=== PATIENT | female | born 1955 | race American Indian/Alaskan Native ===

== ENCOUNTER 2016-08-10 15:31 | Inpatient (IN) | payer MEDICAID ==
[2016-08-10 16:40] LABS: Basophils % (Auto) 0.8 % (0.0-1.8); Hematocrit 37.2 % (30.3-42.9); Hemoglobin 12.6 gm/dl (10.1-14.3); Mean Corpuscular HGB Conc 34 % (30-34); Mean Corpuscular Hemoglobin 26 pg (28-32); Mean Corpuscular Volume 77 fl (79-97); Platelet Count 123 K/mm3 (140-440); Red Blood Count 4.83 M/mm3 (3.65-5.03); Red Cell Distribution Width 14.9 % (13.2-15.2); White Blood Count 8.2 K/mm3 (4.5-11.0)
[2016-08-10 16:54] LABS: Anion Gap 19 mmol/L; BUN/Creatinine Ratio 21.66; Blood Urea Nitrogen 26 mg/dL (7-17); Calcium 8.1 mg/dL (8.4-10.2); Carbon Dioxide 25 mmol/L (22-30); Chloride 91.4 mmol/L (98-107); Glucose 108 mg/dL (65-100); Potassium 3.4 mmol/L (3.6-5.0); Sodium 132 mmol/L (137-145)
--- NOTE | 2016-08-10 17:00 | XRay Report ---
CHEST 2 VIEWS INDICATION: Productive cough. COMPARISON: 06/29/2011. FINDINGS: PA and lateral chest radiographs demonstrate normal cardiomediastinal silhouette. Clear lungs with somewhat prominent markings centrally, right more than left. Intact bones. EKG leads. CONCLUSION: No acute disease in the chest. Thank you for the opportunity to participate in this patient's care.
--- NOTE | 2016-08-10 17:07 | Emergency Department Report ---
HPI - General Chief Complaint: Weakness Time Seen by Provider: 08/10/16 16:45 - HPI HPI: Room 1 The patient is a 61-year-old female presenting with a chief complaint of dizziness. The patient states she came to the emergency department because she has been "feeling bad" for the past 3 days. The patient states she has had dizziness mostly with standing, felt hot, had a dry mouth and a cough occasionally productive of green sputum. The patient states she's had a decreased appetite since her symptoms began. The patient developed diarrhea yesterday morning states she's had approximate 4-5 episodes since. Patient denies chest pain, shortness breath or nausea/vomiting. Patient denies bright red blood per rectum was states she noticed a little bit of black stool. Patient denies any history of fever or loss of consciousness Location: [see above] Duration: [see above] Quality: Dizziness Severity: Moderate Modifying factors: [see above] Context: [see above] Mode of transportation: [not driving] ED Past Medical Hx - Past Medical History Hx Hypertension: Yes Hx CVA: Yes (L sided deficits) - Surgical History Additional Surgical History: tubal ligation - Family History Family history: no significant - Social History Smoking Status: Current Every Day Smoker (one pack per day) Substance Use Type: None ED Review of Systems ROS: Stated complaint: WEAKNESS Other details as noted in HPI Comment: All other systems reviewed and negative Constitutional: denies: fever Eyes: denies: eye pain, eye discharge, vision change ENT: denies: ear pain, throat pain Respiratory: cough. denies: shortness of breath Cardiovascular: denies: chest pain Endocrine: no symptoms reported Gastrointestinal: diarrhea. denies: abdominal pain, nausea, vomiting Genitourinary: denies: urgency, dysuria, discharge Musculoskeletal: denies: back pain, joint swelling, arthralgia Skin: denies: rash, lesions Neurological: denies: headache, weakness, paresthesias Psychiatric: denies: anxiety, depression Hematological/Lymphatic: denies: easy bleeding, easy bruising Physical Exam - Physical Exam Vital Signs: Vital Signs 08/10/16 08/10/16 15:52 16:05 Temperature 99.3 F Pulse Rate 93 H Respiratory 18 18 Rate Blood Pressure 109/66 O2 Sat by Pulse 99 99 Oximetry Physical Exam: GENERAL: The patient is well-developed well-nourished female lying on stretcher not appearing to be in acute distress. [] HEENT: Normocephalic. Atraumatic. Extraocular motions are intact. Patient has moist mucous membranes. NECK: Supple. No meningitic signs are noted. Trachea midline CHEST/LUNGS: Clear to auscultation. There is no respiratory distress noted. HEART/CARDIOVASCULAR: Regular. There is no tachycardia. There is no gallop rub or murmur. ABDOMEN: Abdomen is soft, nontender. Patient has normal bowel sounds. There is no abdominal distention. SKIN: There is no rash. There is no edema. There is no diaphoresis. NEURO: The patient is awake, alert, and oriented. The patient is cooperative. Cranial nerves II through XII grossly intact. The patient has normal speech MUSCULOSKELETAL: There is no evidence of acute injury. RECTAL: Guaiac positive brown stool. Hemorrhoids present ED Course Vital Signs 08/10/16 08/10/16 15:52 16:05 Temperature 99.3 F Pulse Rate 93 H Respiratory 18 18 Rate Blood Pressure 109/66 O2 Sat by Pulse 99 99 Oximetry ED Medical Decision Making - Lab Data Result diagrams: 08/10/16 16:22 08/10/16 16:22 Laboratory Tests 08/10/16 08/10/16 08/10/16 16:22 16:22 18:27 WBC 8.2 RBC 4.83 Hgb 12.6 Hct 37.2 MCV 77 L MCH 26 L MCHC 34 RDW 14.9 Plt Count 123 L Lymph % (Auto) 15.3 [place] % (Auto) 13.0 H Eos % (Auto) 0.0 Baso % (Auto) 0.8 Lymph # 1.3 [place] # 1.1 H Eos # 0.0 Baso # 0.1 Seg Neutrophils % 70.9 H Seg Neutrophils # 5.8 Sodium 132 L Potassium 3.4 L Chloride 91.4 L Carbon Dioxide 25 Anion Gap 19 BUN 26 H Creatinine 1.2 Estimated GFR 56 BUN/Creatinine Ratio 21.66 Glucose 108 H Calcium 8.1 L Troponin T < 0.010 Urine Color Yellow Urine Turbidity Slightly-cloudy Urine pH 6.0 Ur Specific [place] 1.014 Urine Protein <15 mg/dl Urine Glucose (UA) Neg Urine Ketones Neg Urine Blood Sm Urine Nitrite Neg Urine Bilirubin Neg Urine Urobilinogen < 2.0 Ur Leukocyte Esterase Tr Urine WBC (Auto) 2.0 Urine RBC (Auto) 4.0 U Epithel Cells (Auto) 4.0 - EKG Data -: EKG Interpreted by Me EKG shows normal: sinus rhythm Rate: normal - EKG Data When compared to previous EKG there are: previous EKG unavailable Interpretation: nonspecific ST-T wave emily (biphasic T-wave in lead 3. T-wave inversion in leads V2, V3, V4 with no old EKGs available for comparison) - Radiology Data Radiology results: report reviewed (CT head), image reviewed (CT head, chest x- ray) interpreted by me: Chest x-ray-no focal infiltrates, no pneumothorax CT head (read by radiologist)-remote right MCA distribution infarct. No acute intracranial findings - Differential Diagnosis diarrhea, dehydration Critical care attestation.: If time is entered above; I have spent that time in minutes in the direct care of this critically ill patient, excluding procedure time. ED Disposition Clinical Impression: Diarrhea, Rectal bleeding, Dehydration, Orthostatic hypotension Disposition: OP ADMITTED IP TO THIS HOSP Is pt being admited?: Yes Does the pt Need Aspirin: No Condition: Fair Referrals: RASHID MELISSA MD [Primary Care Provider] - 3-5 Days Time of Disposition: 18:57 (hospitalist paged)
--- NOTE | 2016-08-10 17:33 | Cat Scan Report ---
FINAL REPORT EXAM: CT HEAD/BRAIN WO CON HISTORY: dizziness TECHNIQUE: CT of the head without contrast PRIORS: None. FINDINGS: There is encephalomalacia right temporal and frontal lobes consistent with a large remote right MCA distribution infarct. There is ex vacuo dilatation of the right lateral ventricle No acute intra or extra-axial hemorrhage identified. No acute parenchymal abnormalities are seen. No evidence for midline shift or mass effect. Bony calvarium is intact. Visualized portions of the mastoids and paranasal sinuses are unremarkable. IMPRESSION: Remote right MCA distribution infarct No acute intracranial findings.
[2016-08-10] MEDS ORDERED: NACL 0.9% 1000 ML 1,000 ML IV ONE (18:34)
[2016-08-10 18:49] LABS: Bilirubin,Urine NEG (Negative); Blood,Urine SM (Negative); Ketones,Urine NEG (Negative); Leukocyte Esterase,Urine TR (Negative); Nitrite,Urine NEG (Negative); Protein,Urine <15 mg/dL mg/dL (Negative); Urobilinogen,Urine < 2.0 mg/dL (<2.0)
--- NOTE | 2016-08-10 19:07 | Admit Criteria Form ---
Admission Criteria Documentation: DEHYDRATION Clinical Indications for Admission to Inpatient Care (Place 'X' for any and all applicable criteria): Admission is indicated for ANY ONE of the following (1)(2)(3)(4)(5): [X ]I. Inpatient admission required rather than observation care (see Dehydration: Observation Care guideline as appropriate) because of ANY ONE of the following: [ ]a) Vomiting that is severe or persistent [ ]b) Severe electrolyte abnormalities requiring inpatient care [ X]c) Hemodynamic instability [ ]d) IV fluid to replace significant ongoing losses (greater than 3 L/m2 per day (10) (11) [ ]e) Parenteral nutrition regimen that must be implemented on inpatient basis [ ]f) Other condition,treatment or monitoring requiring inpatient admission [ ]II. Serious cause for dehydration requiring acute hospitalization (eg, bowel obstruction, increased intracranial pressure, infectious cause) Extended stay beyond goal length of stay may be needed for(1)(3 )(4)(17): [ ]a) Chronic severe dehydration [ ]b) Persistent vital sign changes, severe electrolyte imbalance, or diagnosed cause of dehydration that requires continued hospitalization (eg, bowel obstruction, increased intracranial pressure) [ ]c) Older patients (65 years or older) [ ]d) Severe comorbid illness (eg, renal failure, heart failure, poorly controlled diabetes) The original [employer] content created by [employer] has been revised. The portions of the content which have been revised are identified through the use of italic text or in bold, and [facility] has neither reviewed nor approved the modified material. All other unmodified content is copyright [facility]. Please see references footnoted in the original [employer] [facility] edition 2016 Admission Criteria Met: Yes
[2016-08-10] MEDS ORDERED: DULCOLAX PR PRN (19:53)
[2016-08-10] MEDS ORDERED: ZOFRAN IV PRN (19:53)
[2016-08-10] MEDS ORDERED: MILK OF MAGNESIA PO PRN (19:53)
[2016-08-10] MEDS ORDERED: NACL 0.9% 1000 ML 1,000 ML with KCL 20 MEQ IV SCH (20:00)
--- NOTE | 2016-08-10 20:08 | History and Physical Report ---
History of Present Illness Chief complaint: Dizziness upon standing History of present illness: 61F w pmh of htn and cva with residual Left sided weakness who presents with 3 days of weakness, fatigue, and 1 day of diarrhea, 5-6 episodes of watery diarrhea but then began having dizzyness upon standing over the last day, she denies CP, she did not pass out, she came to ER for futher evaluation as her symptosm did not get better Past History Past Medical History: hypertension, stroke Past Surgical History: Other (tubal ligation) Social history: smoking (1 ppd) Family history: no significant family history Medications and Allergies Allergies Allergy/AdvReac Type Severity Reaction Status Date / Time No Known Allergies Allergy Unverified 08/10/16 16:01 Active Meds: Active Medications Acetaminophen (Tylenol) 650 mg PO Q4H PRN PRN Reason: Pain MILD(1-3)/Fever >100.5/BESS Bisacodyl (Dulcolax) 10 mg [place] QDAY PRN PRN Reason: Constipation unrelieved by MOM Enoxaparin Sodium (Lovenox) 40 mg SUB-Q QDAY TRACY Potassium Chloride 20 meq/ (Sodium Chloride) 1,010 mls @ 100 mls/hr IV DIRECT TRACY Magnesium Hydroxide (Milk Of Magnesia) 30 ml PO Q4H PRN PRN Reason: Constipation Nicotine (Habitrol) 14 mg TD QDAY TRACY Ondansetron HCl (Zofran) 4 mg IV Q8H PRN PRN Reason: N/V unrelieved by Reglan Review of Systems All systems: negative (as stated in HPI) Constitutional: weakness Exam - Constitutional Vitals: Temp Pulse Resp BP Pulse Ox 101.2 F H 98 H 18 130/74 100 08/10/16 19:27 08/10/16 19:27 08/10/16 19:27 08/10/16 19:27 08/10/16 19:27 General appearance: Present: no acute distress, well-nourished - EENT Eyes: Present: PERRL ENT: hearing intact, clear oral mucosa - Neck Neck: Present: supple, normal ROM - Respiratory Respiratory effort: normal Respiratory: bilateral: CTA - Cardiovascular Heart Sounds: Present: S1 & S2. Absent: rub, click - Extremities Extremities: pulses symmetrical, No edema Peripheral Pulses: within normal limits - Abdominal General gastrointestinal: Present: soft, non-tender, non-distended, normal bowel sounds Female genitourinary: Present: normal - Integumentary Integumentary: Present: clear, warm, dry - Musculoskeletal Musculoskeletal: gait normal, strength equal bilaterally - Psychiatric Psychiatric: appropriate mood/affect, intact judgment & insight - Neurologic Neurologic: CNII-XII intact, moves all extremities, other (Left hemiparesis) Results - Labs CBC & Chem 7: 08/10/16 16:22 08/10/16 16:22 Labs: Laboratory Last Values WBC 8.2 K/mm3 (4.5-11.0) 08/10/16 16: RBC 4.83 M/mm3 (3.65-5.03) 08/10/16 16: Hgb 12.6 gm/dl (10.1-14.3) 08/10/16 16: Hct 37.2 % (30.3-42.9) 08/10/16 16: MCV 77 fl (79-97) L 08/10/16 16: MCH 26 pg (28-32) L 08/10/16 16:22 MCHC 34 % (30-34) 08/10/16 16:22 RDW 14.9 % (13.2-15.2) 08/10/16 16: Plt Count 123 K/mm3 (140-440) L 08/10/16 16:22 Lymph % (Auto) 15.3 % (13.4-35.0) 08/10/16 16:22 [place] % (Auto) 13.0 % (0.0-7.3) H 08/10/16 16:22 Eos % (Auto) 0.0 % (0.0-4.3) 08/10/16 16:22 Baso % (Auto) 0.8 % (0.0-1.8) 08/10/16 16: Lymph # 1.3 K/mm3 (1.2-5.4) 08/10/16 16:22 [place] # 1.1 K/mm3 (0.0-0.8) H 08/10/16 16:22 Eos # 0.0 K/mm3 (0.0-0.4) 08/10/16 16:22 Baso # 0.1 K/mm3 (0.0-0.1) 08/10/16 16:22 Seg Neutrophils % 70.9 % (40.0-70.0) H 08/10/16 16:22 Seg Neutrophils # 5.8 K/mm3 (1.8-7.7) 08/10/16 16:22 Sodium 132 mmol/L (137-145) L 08/10/16 16:22 Potassium 3.4 mmol/L (3.6-5.0) L 08/10/16 16:22 Chloride 91.4 mmol/L (98-107) L 08/10/16 16:22 Carbon Dioxide 25 mmol/L (22-30) 08/10/16 16:22 Anion Gap 19 mmol/L 08/10/16 16:22 BUN 26 mg/dL (7-17) H 08/10/16 16:22 Creatinine 1.2 mg/dL (0.7-1.2) 08/10/16 16:22 Estimated GFR 56 ml/min 08/10/16 16:22 BUN/Creatinine Ratio 21.66 % 08/10/16 16:22 Glucose 108 mg/dL (65-100) H 08/10/16 16:22 Calcium 8.1 mg/dL (8.4-10.2) L 08/10/16 16:22 Troponin T < 0.010 ng/mL (0.00-0.029) 08/10/16 16:22 Urine Color Yellow (Yellow) 08/10/16 18:27 Urine Turbidity Slightly-cloudy (Clear) 08/10/16 18:27 Urine pH 6.0 (5.0-7.0) 08/10/16 18:27 Ur Specific [place] 1.014 (1.003-1.030) 08/10/16 18:27 Urine Protein <15 mg/dl mg/dL (Negative) 08/10/16 18:27 Urine Glucose (UA) Neg mg/dL (Negative) 08/10/16 18:27 Urine Ketones Neg mg/dL (Negative) 08/10/16 18:27 Urine Blood Sm (Negative) 08/10/16 18:27 Urine Nitrite Neg (Negative) 08/10/16 18:27 Urine Bilirubin Neg (Negative) 08/10/16 18:27 Urine Urobilinogen < 2.0 mg/dL (<2.0) 08/10/16 18:27 Ur Leukocyte Esterase Tr (Negative) 08/10/16 18:27 Urine WBC (Auto) 2.0 /HPF (0.0-6.0) 08/10/16 18:27 Urine RBC (Auto) 4.0 /HPF (0.0-6.0) 08/10/16 18:27 U Epithel Cells (Auto) 4.0 /HPF (0-13.0) 08/10/16 18:27 Blood Type O POSITIVE 08/10/16 19:40 - Imaging and Cardiology Chest x-ray: image reviewed (no acute abormalities) CT Scan - head: image reviewed (Remote R MCA stroke) Assessment and Plan Assessment and plan: 61F with dizzyness and diarrhea, found to have orthostatic hypotension 1. Orthostatic Hypotenstion IVFluids 2. Hypokalemia replete IV -check mag level 3. Diarrhea, likely 2/2 Gastroenteritis -fup stool studies 4. Hx of CVA stable 5. HTN currently having orthostatic hypotension, therefore hold BP meds and give IVFluids
[2016-08-10] MEDS ORDERED: TYLENOL ONE (20:14)
[2016-08-10] MEDS: TYLENOL PO PRN (20:19)
[2016-08-10] MEDS: HABITROL TD SCH (23:14)
[2016-08-11] MEDS: NS/KCL 20MEQ 20 MEQ/1,000 ML BAG IV SCH ×2 (00:36→19:52)
[2016-08-11 06:50] LABS: Hematocrit 35.5 % (30.3-42.9); Hemoglobin 11.9 gm/dl (10.1-14.3); Mean Corpuscular HGB Conc 34 % (30-34); Mean Corpuscular Volume 77 fl (79-97); Platelet Count 116 K/mm3 (140-440); Red Cell Distribution Width 14.2 % (13.2-15.2)
[2016-08-11 06:51] LABS: Mean Corpuscular Hemoglobin 26 pg (28-32)
[2016-08-11 06:57] LABS: Anion Gap 19 mmol/L; Blood Urea Nitrogen 20 mg/dL (7-17); Carbon Dioxide 24 mmol/L (22-30); Glucose 85 mg/dL (65-100); Magnesium 1.9 mg/dL (1.7-2.3); Potassium 3.2 mmol/L (3.6-5.0); Sodium 137 mmol/L (137-145)
[2016-08-11 08:03] LABS: Basophils % (Manual) 0 % (0.0-1.8); Blastocytes % (Manual) 0 %; Diff Status Complete; Eosinophils % (Manual) 0 % (0.0-4.3); Hypochromasia Few; Ovalocytes Few; Platelet Estimate Appears Decreased; Poikilocytosis Few; Target Cells Few
[2016-08-11 08:04] LABS: Large Platelets Few
[2016-08-11] MEDS ORDERED: LOVENOX SUB-Q SCH (10:00)
[2016-08-11] MEDS: LEVAQUIN 750MG/150ML 750 MG/150 ML BAG IV SCH (11:40)
[2016-08-11] MEDS ORDERED: K-DUR PO ONE (12:04)
--- NOTE | 2016-08-11 14:52 | Progress Note ---
Assessment and Plan Assessment and plan: 1. Orthostatic Hypotenstion cont IV Fluids likely due to dehydration, vasovagal syncope 2. Hypokalemia repleted IV -follow mag level 3. Diarrhea, likely 2/2 Gastroenteritis -stool studies for c. def negative - start abx for now 4. Hx of CVA stable 5. HTN currently having orthostatic hypotension, therefore hold BP meds and give IV Fluids History Interval history: Pt seen and examined c/o diarrhea, total 4 time since this am c/o nausea, no vomiting Hospitalist Physical - Physical exam Narrative exam: GGENERAL: This is an elderly female lying on bed appeared to be in no discomfort. HEENT: Normocephalic. Atraumatic. Patient has dry mucous membranes. External auditory canal and nares patent bilaterally. NECK: Supple. Trachea midline. CHEST/LUNGS: Clear to auscultated bilaterally. No wheezes crackles or rhonchi. HEART/CARDIOVASCULAR: Regular in rate and rhythm. PMI at the apex. ABDOMEN: Abdomen is soft, nontender. Patient has normal bowel sounds. SKIN: There is no rash, There is no diaphoresis. Warm and dry. NEUROLOGY: generalized weakness, left weaker then right MUSCULOSKELETAL: No joint effusion or tenderness. EXTRIMITY: no edema, cyanosis and clubbing - Constitutional Vitals: Temp Pulse Resp BP Pulse Ox 98.6 F 78 20 104/59 99 08/11/16 07:55 08/11/16 14:02 08/11/16 14:02 08/11/16 07:55 08/11/16 07:55 General appearance: Present: no acute distress, well-nourished Results - Labs CBC & Chem 7: 08/11/16 06:09 08/11/16 06:09 Labs: Laboratory Last Values WBC 5.0 K/mm3 (4.5-11.0) 08/11/16 06:09 RBC 4.60 M/mm3 (3.65-5.03) 08/11/16 06:09 Hgb 11.9 gm/dl (10.1-14.3) 08/11/16 06:09 Hct 35.5 % (30.3-42.9) 08/11/16 06:09 MCV 77 fl (79-97) L 08/11/16 06:09 MCH 26 pg (28-32) L 08/11/16 06:09 MCHC 34 % (30-34) 08/11/16 06:09 RDW 14.2 % (13.2-15.2) 08/11/16 06:09 Plt Count 116 K/mm3 (140-440) L 08/11/16 06:09 Lymph % (Auto) 15.3 % (13.4-35.0) 08/10/16 16:22 [place] % (Auto) Computer Project Manager 08/11/16 06:09 Eos % (Auto) 0.0 % (0.0-4.3) 08/10/16 16:22 Baso % (Auto) 0.8 % (0.0-1.8) 08/10/16 16:22 Lymph # 1.3 K/mm3 (1.2-5.4) 08/10/16 16:22 [place] # 1.1 K/mm3 (0.0-0.8) H 08/10/16 16:22 Eos # 0.0 K/mm3 (0.0-0.4) 08/10/16 16:22 Baso # 0.1 K/mm3 (0.0-0.1) 08/10/16 16:22 Add Manual Diff Complete 08/11/16 06:09 Total Counted 100 08/11/16 06:09 Seg Neutrophils % 70.9 % (40.0-70.0) H 08/10/16 16:22 Seg Neuts % (Manual) 56.0 % (40.0-70.0) 08/11/16 06:09 Band Neutrophils % 2.0 % 08/11/16 06:09 Lymphocytes % (Manual) 26.0 % (13.4-35.0) 08/11/16 06:09 Reactive Lymphs % (Man) 2.0 % 08/11/16 06:09 Monocytes % (Manual) 14.0 % (0.0-7.3) H 08/11/16 06:09 Eosinophils % (Manual) 0 % (0.0-4.3) 08/11/16 06:09 Basophils % (Manual) 0 % (0.0-1.8) 08/11/16 06:09 Metamyelocytes % 0 % 08/11/16 06:09 Myelocytes % 0 % 08/11/16 06:09 Promyelocytes % 0 % 08/11/16 06:09 Blast Cells % 0 % 08/11/16 06:09 Nucleated RBC % Not Reportable 08/11/16 06:09 Seg Neutrophils # 5.8 K/mm3 (1.8-7.7) 08/10/16 16:22 Seg Neutrophils # Man 2.8 K/mm3 (1.8-7.7) 08/11/16 06:09 Band Neutrophils # 0.1 K/mm3 08/11/16 06:09 Lymphocytes # (Manual) 1.3 K/mm3 (1.2-5.4) 08/11/16 06:09 Abs React Lymphs (Man) 0.1 K/mm3 08/11/16 06:09 Monocytes # (Manual) 0.7 K/mm3 (0.0-0.8) 08/11/16 06:09 Eosinophils # (Manual) 0.0 K/mm3 (0.0-0.4) 08/11/16 06:09 Basophils # (Manual) 0.0 K/mm3 (0.0-0.1) 08/11/16 06:09 Metamyelocytes # 0.0 K/mm3 08/11/16 06:09 Myelocytes # 0.0 K/mm3 08/11/16 06:09 Promyelocytes # 0.0 K/mm3 08/11/16 06:09 Blast Cells # 0.0 K/mm3 08/11/16 06:09 WBC Morphology Not Reportable 08/11/16 06:09 Hypersegmented Neuts Not Reportable 08/11/16 06:09 Hyposegmented Neuts Not Reportable 08/11/16 06:09 Hypogranular Neuts Not Reportable 08/11/16 06:09 Smudge Cells Not Reportable 08/11/16 06:09 Toxic Granulation Not Reportable 08/11/16 06:09 Toxic Vacuolation Not Reportable 08/11/16 06:09 Dohle Bodies Not Reportable 08/11/16 06:09 Pelger-Huet Anomaly Not Reportable 08/11/16 06:09 Yary Rods Not Reportable 08/11/16 06:09 Platelet Estimate Appears decreased 08/11/16 06:09 Clumped Platelets Not Reportable 08/11/16 06:09 Plt Clumps, EDTA Not Reportable 08/11/16 06:09 Large Platelets Few 08/11/16 06:09 Giant Platelets Not Reportable 08/11/16 06:09 Platelet Satelliting Not Reportable 08/11/16 06:09 Plt Morphology Comment Not Reportable 08/11/16 06:09 RBC Morphology Not Reportable 08/11/16 06:09 Dimorphic RBCs Not Reportable 08/11/16 06:09 Polychromasia Not Reportable 08/11/16 06:09 Hypochromasia Few 08/11/16 06:09 Poikilocytosis Few 08/11/16 06:09 Anisocytosis Not Reportable 08/11/16 06:09 Microcytosis Not Reportable 08/11/16 06:09 Macrocytosis Not Reportable 08/11/16 06:09 Spherocytes Not Reportable 08/11/16 06:09 Pappenheimer Bodies Not Reportable 08/11/16 06:09 Sickle Cells Not Reportable 08/11/16 06:09 Target Cells Few 08/11/16 06:09 Tear Drop Cells Not Reportable 08/11/16 06:09 Ovalocytes Few 08/11/16 06:09 Helmet Cells Not Reportable 08/11/16 06:09 Huff-[place] Bodies Not Reportable 08/11/16 06:09 Barnum Rings Not Reportable 08/11/16 06:09 Demetrius Cells Not Reportable 08/11/16 06:09 Bite Cells Not Reportable 08/11/16 06:09 Crenated Cell Not Reportable 08/11/16 06:09 Elliptocytes Not Reportable 08/11/16 06:09 Acanthocytes (Spur) Not Reportable 08/11/16 06:09 Rouleaux Not Reportable 08/11/16 06:09 Hemoglobin C Crystals Not Reportable 08/11/16 06:09 Schistocytes Not Reportable 08/11/16 06:09 Malaria parasites Not Reportable 08/11/16 06:09 Castillo Bodies Not Reportable 08/11/16 06:09 Hem Pathologist Commnt No 08/11/16 06:09 Sodium 137 mmol/L (137-145) 08/11/16 06:09 Potassium 3.2 mmol/L (3.6-5.0) L 08/11/16 06:09 Chloride 97.0 mmol/L (98-107) L 08/11/16 06:09 Carbon Dioxide 24 mmol/L (22-30) 08/11/16 06:09 Anion Gap 19 mmol/L 08/11/16 06:09 BUN 20 mg/dL (7-17) H 08/11/16 06:09 Creatinine 0.8 mg/dL (0.7-1.2) 08/11/16 06:09 Estimated GFR > 60 ml/min 08/11/16 06:09 BUN/Creatinine Ratio 25.00 % 08/11/16 06:09 Glucose 85 mg/dL (65-100) 08/11/16 06:09 Calcium 8.0 mg/dL (8.4-10.2) L 08/11/16 06:09 Magnesium 1.9 mg/dL (1.7-2.3) 08/11/16 06:09 Troponin T < 0.010 ng/mL (0.00-0.029) 08/10/16 16:22 Urine Color Yellow (Yellow) 08/10/16 18:27 Urine Turbidity Slightly-cloudy (Clear) 08/10/16 18:27 Urine pH 6.0 (5.0-7.0) 08/10/16 18:27 Ur Specific [place] 1.014 (1.003-1.030) 08/10/16 18:27 Urine Protein <15 mg/dl mg/dL (Negative) 08/10/16 18:27 Urine Glucose (UA) Neg mg/dL (Negative) 08/10/16 18:27 Urine Ketones Neg mg/dL (Negative) 08/10/16 18:27 Urine Blood Sm (Negative) 08/10/16 18:27 Urine Nitrite Neg (Negative) 08/10/16 18:27 Urine Bilirubin Neg (Negative) 08/10/16 18:27 Urine Urobilinogen < 2.0 mg/dL (<2.0) 08/10/16 18:27 Ur Leukocyte Esterase Tr (Negative) 08/10/16 18:27 Urine WBC (Auto) 2.0 /HPF (0.0-6.0) 08/10/16 18:27 Urine RBC (Auto) 4.0 /HPF (0.0-6.0) 08/10/16 18:27 U Epithel Cells (Auto) 4.0 /HPF (0-13.0) 08/10/16 18:27 Blood Type O POSITIVE 08/10/16 19:40 Antibody Screen Negative 08/10/16 19:40
[2016-08-11] MEDS: TYLENOL PO PRN (16:37)
[2016-08-11] MEDS: HABITROL TD SCH (22:10)
[2016-08-12] MEDS: TYLENOL PO PRN ×2 (01:05→05:26)
[2016-08-12] MEDS: FLAGYL PO SCH ×2 (05:26→15:31)
[2016-08-12 05:40] LABS: Hemoglobin 12.3 gm/dl (10.1-14.3)
[2016-08-12 05:59] LABS: Anion Gap 19 mmol/L; BUN/Creatinine Ratio 17.14; Blood Urea Nitrogen 12 mg/dL (7-17); Calcium 8.1 mg/dL (8.4-10.2); Carbon Dioxide 23 mmol/L (22-30); Chloride 93.3 mmol/L (98-107); Glucose 87 mg/dL (65-100); Potassium 3.5 mmol/L (3.6-5.0); Sodium 132 mmol/L (137-145)
[2016-08-12] MEDS: LEVAQUIN 750MG/150ML 750 MG/150 ML BAG IV SCH (10:35)
[2016-08-12] MEDS: NS/KCL 20MEQ 20 MEQ/1,000 ML BAG IV SCH (10:38)
[2016-08-12] MEDS ORDERED: K-DUR PO ONE ×2 (12:43→16:00)
--- NOTE | 2016-08-12 13:01 | Discharge Summary ---
Providers - Providers Date of Admission: 08/10/16 19:54 Date of discharge: 08/12/16 Attending physician: YESENIA DOLAN 08/12/16 10:49 Consult to Physician [CONS] Routine Consulting Provider: JANY SEARS Reason For Exam: positive occult blood in stool Place consult to:: GI Notified:: OFFICE Phone number called:: [phone] Was contact made?: Yes If yes, spoke with:: ELY Time called:: 11:15 Primary care physician: RASHID MELISSA Hospitalization Condition: Fair Hospital course: Discahrge Diagnosis: 1. Orthostatic Hypotenstion resolved with IV Fluids likely due to dehydration, vasovagal syncope 2. Hypokalemia repleted IV 3. Diarrhea, likely 2/2 Gastroenteritis -stool studies for c. def negative - cont abx for now 4. Hx of CVA stable 5. HTN presented with orthostatic hypotension, therefore hold BP meds 6. fever, likley due to sinusitis cont abx Disposition: DISCHARGED TO HOME OR SELFCARE Time spent for discharge: 32 minutes Core Measure Documentation - Palliative Care Palliative Care/ Comfort Measures: Not Applicable - Core Measures Any of the following diagnoses?: history only Exam - Physical Exam Narrative exam: GGENERAL: This is an elderly female lying on bed appeared to be in no discomfort. HEENT: Normocephalic. Atraumatic. Patient has dry mucous membranes. External auditory canal and nares patent bilaterally. NECK: Supple. Trachea midline. CHEST/LUNGS: Clear to auscultated bilaterally. No wheezes crackles or rhonchi. HEART/CARDIOVASCULAR: Regular in rate and rhythm. PMI at the apex. ABDOMEN: Abdomen is soft, nontender. Patient has normal bowel sounds. SKIN: There is no rash, There is no diaphoresis. Warm and dry. NEUROLOGY: generalized weakness, left weaker then right MUSCULOSKELETAL: No joint effusion or tenderness. EXTRIMITY: no edema, cyanosis and clubbing - Constitutional Vitals: Temp Pulse Resp BP Pulse Ox 98.1 F 80 16 123/74 98 08/12/16 07:13 08/12/16 07:13 08/12/16 07:13 08/12/16 07:13 08/12/16 07:13 Plan Activity: fall precautions Weight Bearing Status: Non-Weight Bearing Diet: low cholesterol, low salt Follow up with: RASHID MELISSA MD [Primary Care Provider] - 3-5 Days (F/u with [place] email marketing assistant (Dr. Sears) in 2 weeks.) Prescriptions: Levofloxacin [Levaquin TAB] 500 mg PO QDAY #5 tablet
[2016-08-12 14:52] VITALS: BP 130/71
== END 2016-08-12 18:24 | disposition home or self-care (01) | DRG 392 ==
LOC: ED 15:31 → 3A 19:54
PROVIDERS: ADMIT Internal Medicine; ATTEND Internal Medicine
DX: K52.9 Noninfective gastroenteritis and colitis, unspecified (principal); E86.0 Dehydration; R42 Dizziness and giddiness; E87.6 Hypokalemia; K62.5 Hemorrhage of anus and rectum; J32.9 Chronic sinusitis, unspecified; I69.354 Hemiplegia and hemiparesis following cerebral infarction affecting left non-dominant side; I95.1 Orthostatic hypotension; I10 Essential (primary) hypertension; F17.210 Nicotine dependence, cigarettes, uncomplicated; W19.XXXA Unspecified fall, initial encounter; Y93.89 Activity, other specified; Y92.89 Other specified places as the place of occurrence of the external cause; Y99.8 Other external cause status; Z98.51 Tubal ligation status
CPT/HCPCS: 36415; 70450; 71020; 80048; 81001; 82271; 83735; 84484; 85007; 85014; 85018; 85025; 86850; 86900; 86901; 87040; 87045; 87493; 93005; 93010; J1650; J1956; J7030